=== PATIENT | male | born 1965 | race Caucasian/White ===

== ENCOUNTER 2019-09-08 08:07 | Outpatient (CLI) | payer BC ==
--- NOTE | 2019-09-09 23:20 | EKG ---
Test Reason : Blood Pressure : / mmHG Vent. Rate : 056 BPM Atrial Rate : 056 BPM P-R Int : 190 ms QRS Dur : 098 ms QT Int : 424 ms P-R-T Axes : 044 017 043 degrees QTc Int : 409 ms Sinus bradycardia Inferior infarct , age undetermined Abnormal ECG No previous ECGs available Confirmed by Kandi BERGER ([id number]) on 09/09/2019 11:20:30 PM Referred By: DIANE Confirmed By:Kandi BERGER
== END 2019-09-08 08:08 | disposition home or self-care (01) ==
LOC: LABBT 08:07
PROVIDERS: ATTEND Neurological Surgery
DX: Z01.818 Encounter for other preprocedural examination (principal); M54.16 Radiculopathy, lumbar region
CPT/HCPCS: 93005; 93010

== ENCOUNTER 2019-09-15 05:30 | Day surgery (SDC) | payer BC ==
[2019-09-08 08:30] VITALS: BMI 28.3
--- NOTE | 2019-09-14 12:05 | HP ---
HISTORY OF PRESENT ILLNESS: Mr. Enciso is a pleasant 54-year-old gentleman, presenting with 5 months history of left lower extremity discomfort that matches a left L5 radiculopathy. He presents with an MRI from the center, which reveals a grade 1 spondylolisthesis of L5 upon S1 that appears to impose stenosis along with a lateral disk herniation upon the exiting L5 nerve root at this level. He has treated this with epidural steroid injections with our colleagues and Pain Management, and while they have helped, it has been rather brief. He also feels that unfortunately he started to have some foot weakness and hopes to discuss surgical intervention if possible. PAST MEDICAL HISTORY: Significant for hypertension, mitral valve prolapse. CURRENT MEDICATIONS: Metoprolol. PAST SURGICAL HISTORY: Appendectomy, tonsillectomy, cholecystectomy. ALLERGIES: AUGMENTIN. PHYSICAL EXAMINATION: GENERAL: The patient is alert and oriented x3. EXTREMITIES: Gait is mildly antalgic. Lower extremity motor exam, all positive left straight leg raise. ASSESSMENT: Lumbar radiculopathy and disk herniation. PLAN: Dr. Easley met with the patient, reviewed imaging and advocated for a left L5 decompression and possible diskectomy. He explained to the patient the risks, benefits, and alternatives to the procedure. The patient expressed understanding and elected to move forward with surgery as discussed. I do believe that the patient is mentally competent and capable of making medical decisions for himself, we will move forward with surgery as planned. Job ID: [id number]
[2019-09-15] MEDS ORDERED: Bupivacaine HCl 0.5%/Epinephrine 1:200,000/PF 30 ml Vial ONE (06:17)
[2019-09-15] MEDS ORDERED: Thrombin 5000 UNITS/5 ML VIAL ONE (06:17)
[2019-09-15] MEDS ORDERED: Fentanyl 100 MCG/2 ML VIAL ONE ×2 (06:18→08:44)
[2019-09-15] MEDS ORDERED: Clindamycin/D5W 900 mg/50 ml Premix Bag ONE (06:52)
[2019-09-15] MEDS ORDERED: Levofloxacin 500 mg/D5W 100 ml Premix Bag ONE (06:52)
[2019-09-15] MEDS ORDERED: HYDROmorphone 2 MG/ML VIAL ONE (07:29)
[2019-09-15] MEDS ORDERED: SUGAMMADEX SODIUM 500 MG/5 ML VIAL ONE (08:06)
[2019-09-15] MEDS ORDERED: Tamsulosin HCl 0.4 MG CAP ONE (08:44)
--- NOTE | 2019-09-15 10:39 | OP ---
DATE OF PROCEDURE: 09/15/2019 [employer] OFFICER: Chino Perez PA-C INDICATION: Pain. DIAGNOSIS: Left L5 radiculopathy. PROCEDURES PERFORMED: Left L5 medial facetectomy, foraminotomy, and decompression. ANESTHESIA: General. DESCRIPTION OF PROCEDURE: The patient was brought into the operating room and placed under general anesthesia. He was flipped from the supine to prone position on the operating room table. A linear incision was planned over the L5 segment. After prepping and draping, and after an appropriate operative pause, the incision was created. The soft tissues were swept left of midline. A self-retaining retractor was placed into the wound for optimal exposure. A C-arm image was obtained to confirm the appropriate level. High-speed cutting drill bit as well as 2, 3, and 4 mm Kerrison's were used to perform a laminectomy along the inferior aspect of L5 and superior aspect of S1. The exiting L5 nerve root and L5 foramina were identified and the foraminotomy was extended laterally to encompass the medial half of the facet joint. Epidural fat, facet hypertrophy, and ligamentous material were removed in order to decompress the exiting L5 nerve root. There was also disk material present within the foramina that was carefully removed. After completing the decompression, a Bojorquez ball was easily passed through the foramen without any impedance. The wound was then irrigated. Hemostasis was maintained throughout. The wound was then closed in anatomic layers and a pressure dressing was applied. There were no known procedural complications. Job ID: [id number]
[2019-09-15] MEDS ORDERED: Ondansetron ODT 4 MG TAB ONE (11:00)
== END 2019-09-15 11:35 | disposition home or self-care (01) ==
LOC: SDC 05:30
PROVIDERS: ATTEND Neurological Surgery
PROC: 01NB0ZZ Release Lumbar Nerve, Open Approach (ICD-10-PCS; principal; 2019-09-15)
PROC: 0SB20ZZ Excision of Lumbar Vertebral Disc, Open Approach (ICD-10-PCS; principal; 2019-09-15)
DX: M51.16 Intervertebral disc disorders with radiculopathy, lumbar region (principal); M43.16 Spondylolisthesis, lumbar region; I10 Essential (primary) hypertension; G43.909 Migraine, unspecified, not intractable, without status migrainosus; I34.1 Nonrheumatic mitral (valve) prolapse; Z79.899 Other long term (current) drug therapy; Z88.0 Allergy status to penicillin
CPT/HCPCS: 76000; J0670; J0690; J1170; J1956; J3010; J3490; Q0162

== ENCOUNTER 2021-05-18 09:34 | Emergency (ER) | payer BC ==
[2021-05-18 10:02] LABS: Bacteria/HPF None Seen HPF (None Seen); Bilirubin Negative (Negative); Blood, Urine 2+ (Negative); Clarity Clear (Clear); Glucose, Urine (Dipstick) Normal (Negative); Ketone, Urine Negative (Negative); Leukocyte Negative Leu/uL (Negative); Nitrite Negative (Negative); Protein, Urine (Dipstick) 20 mg/dL (Neg-Trace); Squamous Epithelial None Seen HPF (0-3); Urobilinogen Normal mg/dL (Less than 2); WBC/HPF 0-3 HPF (0-3)
[2021-05-18] MEDS ORDERED: Morphine 4 MG/ML VIAL ONE (10:09)
[2021-05-18] MEDS ORDERED: Ketorolac Tromethamine 30 MG/ML VIAL ONE (10:10)
[2021-05-18] MEDS ORDERED: Ondansetron PF 4 MG/2 ML Vial ONE (10:10)
[2021-05-18 10:21] LABS: #Basophils 0.1 thou/uL (0.0-0.2); #Eosinphils 0.2 thou/uL (0.0-0.7); #Lymphocytes 1.7 thou/uL (1.20-3.40); #Monocytes 0.7 thou/uL (0.11-0.59); #Neutrophils 6.9 thou/uL (1.40-6.50); %Basophils 0.7 % (0.0-1.0); %Eosinophils 2.1 % (0.0-10.0); %Lymphocytes 17.9 % (21.0-51.0); %Monocytes 6.9 % (0.0-10.0); %Neutrophils 72.3 % (42.0-75.0); Hemoglobin 15.6 g/dL (14.0-18.0); Mean Corpuscular HGB CONC 32.7 g/dL (32.0-36.0); Mean Corpuscular Hemoglobin 31.2 pg (27.0-31.0); Mean Corpuscular Volume 95.2 fL (78.0-98.0); Mean Platelet Volume 11.2 fL (7.4-10.4); Platelet Count 159 thou/uL (130-400); RBC Distribution Width 12.2 % (11.5-14.5); Red Blood Cell (RBC) Count 5.01 mill/uL (4.70-6.10); White Blood Cell (WBC) Count 9.5 thou/uL (4.8-10.8)
[2021-05-18 10:30] LABS: ALT (SGPT) 22 U/L (8-55); AST (SGOT) 21 U/L (5-34); Albumin 4.7 g/dL (3.5-5.0); Alkaline Phosphatase 60 U/L (40-110); Anion Gap 14 mmol/L (10-20); BUN (Urea Nitrogen) 21 mg/dL (8.4-25.7); Bilirubin, Total 0.5 mg/dL (0.2-1.2); Calc. Creatinine Clearance 0 mL/min (70-130); Calcium 9.6 mg/dL (7.8-10.44); Carbon Dioxide 25 mmol/L (22-29); Chloride 105 mmol/L (98-107); Globulin 2.8 g/dL (2.4-3.5); Glucose 123 mg/dL (70-105); Lipase 39 U/L (8-78); Potassium 3.9 mmol/L (3.5-5.1); Protein, Total 7.5 g/dL (6.0-8.3); Sodium 140 mmol/L (136-145)
== END 2021-05-18 14:16 | disposition home or self-care (01) ==
LOC: ERS 09:34
DX: N20.1 Calculus of ureter (principal); I10 Essential (primary) hypertension
CPT/HCPCS: 36415; 74176; 80053; 81003; 81015; 83605; 83690; 85025; 87040; 87086; 96365; 96366; 96375; J1885; J1956; J2270; J2405